=== PATIENT | male | born 1935 | race Caucasian/White ===

== ENCOUNTER → 2020-10-01 | Outpatient (CLI) | payer MEDICARE | LOC: LABNPT 15:00 | PROVIDERS: ATTEND Family Medicine | DX: N39.0 Urinary tract infection, site not specified (principal) | CPT/HCPCS: 87088 ==

== ENCOUNTER → 2020-10-10 | Outpatient (CLI) | payer MEDICARE ==
[2020-10-10 13:25] LABS: BACTERIA,URINE NEGATIVE /HPF; BILIRUBIN,URINE NEGATIVE (NEGATIVE); CLARITY,URINE CLEAR; COLOR,URINE YELLOW; GLUCOSE, URINE (UA) NEGATIVE (NEGATIVE); KETONES,URINE NEGATIVE (NEGATIVE); LEUKOCYTE ESTERASE ,URINE TRACE (NEGATIVE); NITRITE,URINE NEGATIVE (NEGATIVE); PROTEIN,URINE NEGATIVE (NEGATIVE); SQUAMOUS EPITHELIAL CELL,UR 0-2 /HPF
== END ==
LOC: LAB FS 13:02
PROVIDERS: ATTEND Family Medicine
DX: R10.9 Unspecified abdominal pain (principal)
CPT/HCPCS: 81000; 87088

== ENCOUNTER → 2020-10-15 | Outpatient (CLI) | payer MEDICARE | LOC: LABNPT 14:55 | PROVIDERS: ATTEND Family Medicine | DX: N10 Acute pyelonephritis (principal) | CPT/HCPCS: 87077; 87088 ==

== ENCOUNTER → 2020-10-15 | Outpatient (CLI) | payer MEDICARE ==
--- NOTE | 2020-10-15 10:57 | Diagnostic Imaging Report ---
PROCEDURE: CT urinary tract, rule out kidney stone. TECHNIQUE: Multiple contiguous axial images were obtained through the abdomen and pelvis without the use of intravenous contrast. Auto Exposure Controls were utilized during the CT exam to meet ALARA standards for radiation dose reduction. INDICATION: Left-sided flank pain 1 month history. No relevant comparison. There are no radiopaque urinary tract calculi and there is no hydroureteronephrosis. There is however substantial thickening diffusely of the kinsey of the urinary bladder which would be consistent with cystitis in the appropriate clinical scenario. There is also some mild left-sided urothelial thickening and edematous changes of the left perinephric fat. Superimposed pyelonephritis could not be excluded. No findings to suggest abscess at this nonenhanced study. The right kidney and ureter appeared normal. There is an elevated colonic fecal load diffusely consistent with at least mild [place] colonic constipation but no findings of obstruction or focal impaction. There are some scattered low-density foci believed cysts in the liver. No bile duct dilatation. The gallbladder negative. The adrenals, spleen and uninfused pancreas appeared nonacute. The atherosclerotic aorta is nonaneurysmal. The left hip replaced. There is degenerative changes diffusely. No acute appearing bony abnormality. The lung bases showed no acute feature. IMPRESSION: Some left-sided perinephric edema and mild urothelial thickening with thickening of the urinary bladder wall. Cystitis and/or left-sided pyelonephritis could not be excluded. However no opaque stone or hydronephrosis and no evidence for an abscess. Colonic constipation without focal impaction or obstruction. No other potential acute pathology. Dictated by: Dictated on workstation # [id number]
== END ==
LOC: RAD FS 10:05
PROVIDERS: ATTEND Family Medicine
DX: N32.89 Other specified disorders of bladder (principal); K59.00 Constipation, unspecified
CPT/HCPCS: 74176